=== PATIENT | male | born 1970 | race Caucasian/White ===

== ENCOUNTER 2017-12-23 09:49 | Emergency (ER) | payer BC ==
[~2017-12-23] VITALS: Ht 177.8 cm; Wt 93.0 kg
[~2017-12-23 09:49] MED LIST: KEFLEX500 MG PO; VICO10300 PO
[2017-12-23] MEDS ORDERED: NAPROSYN500 MG PO (10:14)
[2017-12-23] MEDS ORDERED: CHLORZOXAZONE500 M2 PO (10:14)
== END 2017-12-23 11:30 | disposition home or self-care (01) ==
LOC: ED 09:49
DX: M54.41 Lumbago with sciatica, right side (principal); R03.0 Elevated blood-pressure reading, without diagnosis of hypertension